=== PATIENT | male | born 1975 | race Caucasian/White ===

== ENCOUNTER 2018-12-08 14:26 | Observation (INO) ==
[2018-12-08 14:48] LABS: Bilirubin,Urine Negative (Negative); Blood,Urine Negative (Negative); Clarity,Urine Clear (Clear); Color,Urine Yellow (Yellow); Glucose,Urine (UA) >=1000 mg/dL (Normal); Ketones,Urine Negative (Negative); Leukocyte Esterase,Urine Negative (Negative); Nitrite,Urine Negative (Negative); PH,Urine 5.5 pH Units (5.0-8.0); Protein,Urine Trace mg/dL (Neg-Trace); Urobilinogen,Urine Normal (Normal)
[2018-12-08 15:05] LABS: Basophils % 0.2 %; Eosinophils % 0.1 %; Hematocrit 42.6 % (37.5-50.1); Hemoglobin 14.7 g/dL (12.9-16.9); Immature Granulocytes % 0.4 % (0-4); Lymphocytes % 6.4 %; Mean Corpuscular HGB Conc 34.5 g/dL (31.6-35.5); Mean Corpuscular Hemoglobin 28.4 pg (28.0-33.3); Mean Corpuscular Volume 82.4 fL (83.0-100.0); Mean Platelet Volume 10.3 fL (9.4-12.4); Monocytes # 0.9 K/mcL (0.0-1.3); Monocytes % 5.8 %; Neutrophils # 13.6 K/mcL (1.6-8.9); Platelet Count 345 K/mcL (140-400); Red Blood Count 5.17 M/mcL (4.19-5.50); Red Cell Distribution Width 13.2 % (11.5-14.5); Segmented Neutrophils % 87.1 %
[2018-12-08 15:11] LABS: Amphetamine Screen,Urine Negative ng/mL (Cutoff=1000); Barbiturate Screen,Urine Negative ng/mL (Cutoff=200); Benzodiazepines Screen,Urine Negative ng/mL (Cutoff=200); Cannabinoid Screen,Urine Negative ng/mL (Cutoff = 50); Cocaine Screen,Urine Negative ng/mL (Cutoff= 300); Opiate Screen,Urine Negative ng/mL (Cutoff=300); Phencyclidine Screen,Urine Negative ng/mL (Cutoff=25)
[2018-12-08 15:22] LABS: Acetaminophen < 10 mcg/mL (10-20); BUN/Creatinine Ratio 23 (6-26); Blood Urea Nitrogen 17 mg/dL (6-20); Calcium 9.8 mg/dL (8.6-10.3); Carbon Dioxide 25 mEq/L (23-29); Chloride 101 mEq/L (98-107); Ethanol < 10 mg/dL (Less than 10); Glucose 228 mg/dL (70-105); Osmolality,Calculated 291 (280-300); Potassium 3.4 mEq/L (3.5-5.1); Salicylate < 2.5 mg/dL (15.0-30.0); Sodium 136 mEq/L (136-145); eGFR For Non-African Americans > 60 (> 60)
--- NOTE | 2018-12-08 16:29 | Emergency Department Note ---
Disposition Clinical Impression: Suicidal ideations Type 1 diabetes Qualifiers: Diabetes mellitus complication status: without complication Qualified Code(s): E10.9 - Type 1 diabetes mellitus without complications Disposition: Still a Patient Condition: Good Referrals: Delmy Lee CNP [Primary Care Provider] - Forms: ED Satisfaction Letter Time of Disposition: 18:28 Psych HPI - General Chief Complaint: ED Psychiatric Symptoms Stated Complaint: SI Time Seen by Provider: 12/08/18 14:35 Source: patient, family Mode of arrival: ambulatory Limitations: no limitations Nursing Notes Reviewed: Yes Vital Signs Reviewed: Yes - History of Present Illness HPI Narrative: 43-year-old male presented to the emergency department for suicidal ideations. He did have an attempt where he said he took a lot of his insulin both long- acting and short-acting last night. found him very depressed and brought him in for further evaluation. He said he has had one attempt previously back in he was insistent grade no other times otherwise. Stays never been hos pitalized for this issue. He has no homicidal ideations is been no fevers, chills, nausea, vomiting. Otherwise patient has no other complaints. - Related Data Home Medications Medication Instructions Recorded Confirmed Insulin ASPART [NovoLOG] 0 unit SQ AD 04/18/15 06/23/16 FLUoxetine HCl [PROzac] 20 mg PO DAILY 06/23/16 06/23/16 Previous Rx's Medication Instructions Recorded Doxycycline 100 mg PO BID #14 capsule 06/23/16 Ibuprofen [Motrin] 800 mg PO Q8HR #30 tablet 06/23/16 Cephalexin [Keflex] 500 mg PO QID #28 capsule 02/04/18 Allergies Allergy/AdvReac Type Severity Reaction Status Date / Time Amoxicillin Allergy Rash Verified 02/04/18 08:34 All systems ED: reviewed and negative except as stated. Review of Systems: As Per HPI Past Medical History - Past Medical History Attestation: Yes The following information was validated with the patient. Source: patient Medical history: Reports: diabetes Psychiatric history: Reports: no psych history - Social History Smoking Status: Never smoker Smokeless Tobacco Status: Yes (1 CAN/DAY) Alcohol use: Reports: none Drug use: Reports: none Physical Exam - General Limitations: no limitations General appearance: alert, in no apparent distress - Head Head exam: atraumatic, normocephalic, normal inspection - Eye Eye exam: Present: normal appearance, PERRL, EOMI - ENT ENT exam: normal exam, normal oropharynx, mucous membranes moist - Neck Neck exam: Present: normal inspection, full ROM, trachea midline - Chest Chest inspection: Present: normal inspection, symmetric chest wall rise - Respiratory Respiratory exam: Present: normal lung sounds bilaterally. Absent: respiratory distress, wheezes, stridor, accessory muscle use, prolonged expiratory phase - Cardiovascular Cardiovascular exam: Present: regular rate, normal rhythm, normal heart sounds - Abdominal Exam Abdominal exam: Present: soft, Non-Tender, normal bowel sounds. Absent: tenderness, distention, guarding, rebound, rigidity - Extremities Exam Extremities exam: Present: normal inspection, full ROM. Absent: tenderness, pedal edema - Back Exam Back exam: Present: normal inspection, full ROM. Absent: tenderness, CVA tenderness (R), CVA tenderness (L) - Neurological Exam Neurological exam: Present: alert, oriented X3 - Skin Skin exam: Present: warm, dry, intact, normal color Course Vital Signs Temperature 97.9 F 12/08/18 14:27 Pulse Rate 130 12/08/18 14:27 Respiratory Rate 18 12/08/18 14:27 Blood Pressure 134/73 12/08/18 14:27 O2 Sat by Pulse Oximetry 98 12/08/18 14:27 Temperature 97.9 F 12/08/18 15:48 Pulse Rate 130 12/08/18 15:48 Respiratory Rate 18 12/08/18 15:48 Blood Pressure 134/73 12/08/18 15:48 O2 Sat by Pulse Oximetry 98 12/08/18 15:48 Oxygen Delivery Oxygen Delivery Room Air Psych - MDM Narrative Medical decision making narrative: Psych medical clearance was done patient is been medically cleared and psych will come up and evaluate the pelvic patient for further disposition and plan. Patient's blood sugar is stable he is medically clear from taken his insulin at this time. Patient evaluated by psychiatry who did recommend admission and forcing were unable to admit here so we will look for placement another facility. Patient's blood sugar was repeated it was down to 67 this is expected as the long-acting should be wearing off at this time. Did give patient fluid we will recheck it in an hour at that time as well as is still stable patient can be medically cleared as he does have history diabetes and that needs to control his blood sugar at this time. This part is a long-acting working towards the end of the day as he has not eaten all day as well. We will give patient a meal tray as well. Patient is still patient at the end of our shift so patient will be signed out to Dr. Cameron and Daniella. Please refer to their note for further plan and disposition. - Lab Data Result diagrams: 12/08/18 14:54 12/08/18 14:54 Lab Results 12/08/18 12/08/18 12/08/18 Range/Units 14:43 14:43 14:54 WBC 15.6 H (4.3-11.1) K/mcL RBC 5.17 (4.19-5.50) M/mcL Hgb 14.7 (12.9-16.9) g/dL Hct 42.6 (37.5-50.1) % MCV 82.4 L (83.0-100.0) fL MCH 28.4 (28.0-33.3) pg MCHC 34.5 (31.6-35.5) g/dL RDW 13.2 (11.5-14.5) % Plt Count 345 (140-400) K/mcL MPV 10.3 (9.4-12.4) fL Immature Gran % 0.4 (0-4) % Seg Neutrophils % 87.1 % Lymphocytes % 6.4 % Monocytes % 5.8 % Eosinophils % 0.1 % Basophils % 0.2 % Neutrophils # 13.6 H (1.6-8.9) K/mcL Lymphocytes # 1.0 (0.6-4.6) K/mcL Monocytes # 0.9 (0.0-1.3) K/mcL Eosinophils # 0.0 (0.0-0.6) K/mcL Basophils # 0.0 (0.0-0.2) K/mcL Sodium (136-145) mEq/L Potassium (3.5-5.1) mEq/L Chloride (98-107) mEq/L Carbon Dioxide (23-29) mEq/L BUN (6-20) mg/dL Creatinine (0.70-1.30) mg/dL Est GFR ( Amer) (> 60) Est GFR (Non-Af Amer) (> 60) BUN/Creatinine Ratio (6-26) Glucose (70-105) mg/dL Calculated Osmolality (280-300) Calcium (8.6-10.3) mg/dL Urine Color Yellow (Yellow) Urine Clarity Clear (Clear) Urine pH 5.5 (5.0-8.0) pH Units Ur Specific [place] 1.020 (1.010-1.025) Urine Protein Trace (Neg-Trace) mg/dL Urine Glucose (UA) >=1000 H (Normal) mg/dL Urine Ketones Negative (Negative) mg/dL Urine Blood Negative (Negative) Urine Nitrite Negative (Negative) Urine Bilirubin Negative (Negative) Urine Urobilinogen Normal (Normal) mg/dL Ur Leukocyte Esterase Negative (Negative) Salicylates (15.0-30.0) mg/dL Urine Opiates Screen Negative (Birzfx=945) ng/mL Acetaminophen (10-20) mcg/mL Ur Barbiturates Screen Negative (Ykxrmt=396) ng/mL Ur Phencyclidine Scrn Negative (Cutoff=25) ng/mL Ur Amphetamines Screen Negative (Cjvgvi=6785) ng/mL U Benzodiazepines Scrn Negative (Fthyxl=274) ng/mL Urine Cocaine Screen Negative (Cutoff= 300) ng/mL U Marijuana (THC) Screen Negative (Cutoff = 50) ng/mL Ur Drug Screen Interp See Below Ethyl Alcohol (Less than 10) mg/dL 12/08/18 Range/Units 14:54 WBC (4.3-11.1) K/mcL RBC (4.19-5.50) M/mcL Hgb (12.9-16.9) g/dL Hct (37.5-50.1) % MCV (83.0-100.0) fL MCH (28.0-33.3) pg MCHC (31.6-35.5) g/dL RDW (11.5-14.5) % Plt Count (140-400) K/mcL MPV (9.4-12.4) fL Immature Gran % (0-4) % Seg Neutrophils % % Lymphocytes % % Monocytes % % Eosinophils % % Basophils % % Neutrophils # (1.6-8.9) K/mcL Lymphocytes # (0.6-4.6) K/mcL Monocytes # (0.0-1.3) K/mcL Eosinophils # (0.0-0.6) K/mcL Basophils # (0.0-0.2) K/mcL Sodium 136 (136-145) mEq/L Potassium 3.4 L (3.5-5.1) mEq/L Chloride 101 (98-107) mEq/L Carbon Dioxide 25 (23-29) mEq/L BUN 17 (6-20) mg/dL Creatinine 0.74 (0.70-1.30) mg/dL Est GFR ( Amer) > 60 (> 60) Est GFR (Non-Af Amer) > 60 (> 60) BUN/Creatinine Ratio 23 (6-26) Glucose 228 H (70-105) mg/dL Calculated Osmolality 291 (280-300) Calcium 9.8 (8.6-10.3) mg/dL Urine Color (Yellow) Urine Clarity (Clear) Urine pH (5.0-8.0) pH Units Ur Specific [place] (1.010-1.025) Urine Protein (Neg-Trace) mg/dL Urine Glucose (UA) (Normal) mg/dL Urine Ketones (Negative) mg/dL Urine Blood (Negative) Urine Nitrite (Negative) Urine Bilirubin (Negative) Urine Urobilinogen (Normal) mg/dL Ur Leukocyte Esterase (Negative) Salicylates < 2.5 L (15.0-30.0) mg/dL Urine Opiates Screen (Nekaew=373) ng/mL Acetaminophen < 10 L (10-20) mcg/mL Ur Barbiturates Screen (Jdhgxc=164) ng/mL Ur Phencyclidine Scrn (Cutoff=25) ng/mL Ur Amphetamines Screen (Elieko=8738) ng/mL U Benzodiazepines Scrn (Jwoekf=043) ng/mL Urine Cocaine Screen (Cutoff= 300) ng/mL U Marijuana (THC) Screen (Cutoff = 50) ng/mL Ur Drug Screen Interp Ethyl Alcohol < 10 (Less than 10) mg/dL Psychiatric Medical Clearance - Medical Clearance Checklist Medical History: No Social History Section defined Current Vitals: Last Vital Signs Temp 97.9 F 12/08/18 15:48 Pulse 130 12/08/18 15:48 Resp 18 12/08/18 15:48 BP 134/73 12/08/18 15:48 Pulse Ox 98 12/08/18 15:48 Psychiatric Lab Panel: Drug Levels and Toxicity 12/08/18 12/08/18 14:43 14:54 Urine Opiates Screen Negative Acetaminophen < 10 L Ur Barbiturates Screen Negative Ur Phencyclidine Scrn Negative Ur Amphetamines Screen Negative U Benzodiazepines Scrn Negative Urine Cocaine Screen Negative U Marijuana (THC) Screen Negative Ethyl Alcohol < 10 Abnormal Labs: Abnormal lab results WBC 15.6 K/mcL (4.3-11.1) H 12/08/18 14:54 MCV 82.4 fL (83.0-100.0) L 12/08/18 14:54 13.6 K/mcL (1.6-8.9) H 12/08/18 14:54 Potassium 3.4 mEq/L (3.5-5.1) L 12/08/18 14:54 Glucose 228 mg/dL (70-105) H 12/08/18 14:54 >=1000 mg/dL (Normal) H 12/08/18 14:43 Salicylates < 2.5 mg/dL (15.0-30.0) L 12/08/18 14:54 Acetaminophen < 10 mcg/mL (10-20) L 12/08/18 14:54 Statement of Medical Clearance: I have evaluated the patient, reviewed diagnostic information, and certify that the patient's medical condition is sufficiently stable that transfer to the psychiatric unit does not pose a significant risk of deterioration. Attestation Statement - Attestation Attestation: Patient was seen with resident physician. I reviewed the history, physical, assessment and plan, and agree with the findings. I also personally evaluated this patient and had [id number] time with this patient. 43-year-old male presents to the emergency department with chief complaint of suicidal ideation. Patient says that about one or 2 in the morning he decided to kill himself and he did so by taking 3 or so vials of insulin. He is a type I diabetic and takes short and long-term acting insulin. This was brought to the attention family member around 11 AM and eventually presented into the emergency department for evaluation and treatment. Symptomatically patient really does not have any symptoms other than very depressed and wanting to hurt himself. Review systems as above remainder negative. Physical exam vital signs are stable. ENT is unremarkable. Heart regular rhythm and rate. Lungs clear. Abdomen soft nontender. Extremities unre markable. Neurologically intact. Skin superficial laceration that appears to be healing in the right forearm. No other lacks were seen. Patient said this was an accidental lack. Psych depressed flat affect. ED course. With the time out from his insulin administration a normal glucose essentially rules out an issue. His glucose is actually high at 226. Other lab tests are unremarkable. We will have one A come and evaluate the patient. They will help facilitate disposition. Patient's repeat glucose was in the 60s which is still in the normal range. He will be given a meal tray he has not really eaten today. This be rechecked by the rn shift mgr team and about an hour. We did discuss if his glucose comes up and is within the normal range she should be medically cleared for psychiatric treatment. If he continues to drop and probably needs additional medical management. This was communicated to the rn shift mgr team. Hemodynamically the patient was stable. Neurologically he had no signs of hypoglycemia or other neurologic deficits. He still was depressed. I agree with the resident physician assessment and plan.
[2018-12-08] MEDS ORDERED: Naloxone 0.4 MG/ML INJ IVP PRN ×2 (22:12→22:30)
[2018-12-09] MEDS ORDERED: D5% in 0.45% NACL 1,000 ML IVC SCH ×2 (00:45→04:20)
--- NOTE | 2018-12-09 00:46 | Internal Med History&Physical ---
Date of Encounter: 12/09/18 Time of Encounter: 00:40 Internal Medicine - H&P: HPI Chief complaint: Suicide attempt History of present illness: Mr. Adams is a 43 year old male with a past medical history of type 1 diabetes who presented to the ED after his found him somnolent and unresponsive. Patient apparently had taken 600 units of his short acting and 600 units of his long-acting insulin in an attempt to end his life. We were asked to observe the patient for the next 24 hours due to concern for hypoglycemia. Blood sugars on arrival were in the 60s to 70s. Patient has a history of previous attempt in the past. Currently denies any suicidal ideation. Patient states that the fact that he was unsuccessful and ending his life given the amount of insulin he took was assigned that it was not his time. Patient otherwise denies any fever, chills, chest pain, shortness of breath, nausea, vomiting or diarrhea. Had been on Prozac for approximately 2 years and discontinued taking it 3 weeks ago stating that he felt it was not doing anything. Patient concerned that he may have bipolar disorder. He states he has never been formally evaluated by a psychiatrist. Patient is and has 2 kids. Labs aside from a mild leukocytosis of 15 were unremarkable. We will admit patient for observation with one-to-one sitter and psychiatric consult. Past Med Surg Social Fam HX - Past Medical History Medical history: diabetes Psychiatric history: depression, prior suicide attempt - Past Surgical History Additional surgical history: R KNEE MENISCUS. - Social History Smoking Status: Never smoker Smokeless Tobacco Status: Yes (1 CAN/DAY) Alcohol use: none, rarely Drug use: none - Additional Family History Additional family history: Noncontributory Internal Medicine - H&P: Meds Insulin ASPART [NovoLOG] 0 unit SQ AD 04/18/15 [History] FLUoxetine HCl [PROzac] 20 mg PO DAILY 06/23/16 [History] Insulin LISPRO [Humalog] 12 units SQ 12/08/18 [History] Allergy/AdvReac Type Severity Reaction Status Date / Time Amoxicillin Allergy Rash Verified 02/04/18 08:34 All Systems PM: A 10-system review of systems was performed and is negative for pertinent findings except as documented above in the HPI. - Constitutional Constitutional: no chills, no fever(s), no night sweats - EENT Eyes: no change in vision, no discharge, no pain, no photophobia Ears: no ear discharge, no ear pain, no tinnitus Nose, mouth and throat: no dysphagia, no nasal discharge, no neck pain, no sore throat - Cardiovascular Cardiovascular ROS IM: no chest pain, no diaphoresis, no dyspnea, no lightheadedness, no palpitations, no syncope - Respiratory Respiratory: no cough, no dyspnea, no wheezing, no excessive phlegm production - Gastrointestinal Gastrointestinal: no abdominal pain, no diarrhea, no hematemesis, no hematochezia, no melena, no nausea, no vomiting - Musculoskeletal Musculoskeletal ROS IM: no numbness, no tingling - Integumentary Integumentary IM: no rash, no unusual bruising - Neurological Neurological ROS: no confusion, no convulsions, no focal weakness, no numbness, no tingling, no tremor(s) - Hematologic/Lymphatic Hematologic/Lymphatic: no easy bruising - Constitutional Vitals: Temp Pulse Resp BP Pulse Ox 99.3 F 94 15 119/78 99 12/08/18 23:03 12/08/18 23:03 12/08/18 23:03 12/08/18 23:03 12/08/18 23:03 Exam: General: Alert and oriented 3 lying in bed in no acute distress Skin:Normal color, no rash, no lesions. HEENT:EOM, pupils equal, round and reactive. Cardiovascular:Normal S1 & S2, no rubs, murmurs or gallops. No JVD. Pulse regular. Lungs:Normal breath sounds, no wheezes or crackles. Abdomen:Soft, non-tender, no rigidity. Extremities:No deformity, no edema or tenderness, no joint swelling or clubbing. Neurological:Normal cognition and motor skills. Pulses:Carotid and radial pulses normal +2. Rest of the physical exam is non contributory Internal Med - H&P Results - Labs CBC & Chem 7: 12/08/18 14:54 12/08/18 14:54 Labs: Short CBC 12/08/18 Range/Units 14:54 WBC 15.6 H (4.3-11.1) K/mcL Hgb 14.7 (12.9-16.9) g/dL Hct 42.6 (37.5-50.1) % Plt Count 345 (140-400) K/mcL Neutrophils # 13.6 H (1.6-8.9) K/mcL BMP 12/08/18 14:54 Sodium 136 Potassium 3.4 L Chloride 101 Carbon Dioxide 25 BUN 17 Creatinine 0.74 Glucose 228 H Calcium 9.8 Urine 12/08/18 Range/Units 14:43 Urine Color Yellow (Yellow) Urine Clarity Clear (Clear) Urine pH 5.5 (5.0-8.0) pH Units Ur Specific [place] 1.020 (1.010-1.025) Urine Protein Trace (Neg-Trace) mg/dL Urine Glucose (UA) >=1000 H (Normal) mg/dL - Assessment and Plan (1) Hypoglycemia Current Visit: Yes Status: Acute Assessment and plan: Patient presenting with suicide attempt after injecting himself with 600 units of his long-acting and 600 units of a short acting insulin. Lowest blood glucose level was in the 60s to 70s. -We will continue with blood glucose checks every 30 minutes for the next hour and increased frequency if stable. -We will start patient on D5 half-normal saline. (2) Suicidal ideations Current Visit: Yes Status: Acute Assessment and plan: Suicidal ideation with suicidal attempt. Patient evaluated by psychiatry in the ED. We will continue one-to-one sitter. Consult to psychiatry (3) Type 1 diabetes Current Visit: Yes Status: Acute Assessment and plan: We will start patient on sliding scale insulin after blood glucose stabilized. Qualifiers: Diabetes mellitus complication status: with unspecified complications Qualified Code(s): E10.8 - Type 1 diabetes mellitus with unspecified complications (4) DVT prophylaxis Current Visit: Yes Status: Acute Assessment and plan: Subcutaneous heparin - Time Spent With Patient Total time spent is greater than 50% in coordination of care (as documented) at patient's floor/unit and/or counseling patient:
[2018-12-09] MEDS: D5% in 0.45% NACL 1,000 ML IVC SCH ×4 (04:57→23:38)
[2018-12-09] MEDS: *HR* Heparin 5,000 UNIT/ML VIAL SQ SCH ×3 (04:57→21:45)
--- NOTE | 2018-12-09 09:45 | Internal Med Progress Note ---
Hospitalist Progress Note - Encounter Date of Encounter: 12/09/18 Time of Encounter: 09:30 - Subjective Interval History: No acute events overnight. Blood sugar has been stable - Exam Vitals: Temp Pulse Resp BP Pulse Ox 98.3 F 81 18 108/65 99 12/09/18 03:13 12/09/18 03:13 12/09/18 03:13 12/09/18 03:13 12/09/18 03:13 Exam: General: Alert and oriented 3 lying in bed in no acute distress Skin:Normal color, no rash, no lesions. HEENT:EOM, pupils equal, round and reactive. Cardiovascular:Normal S1 & S2, no rubs, murmurs or gallops. No JVD. Pulse regular. Lungs:Normal breath sounds, no wheezes or crackles. Abdomen:Soft, non-tender, no rigidity. Extremities:No deformity, no edema or tenderness, no joint swelling or clubbing. Neurological:Normal cognition and motor skills. Pulses:Carotid and radial pulses normal +2. Rest of the physical exam is non contributory - Assessment and Plan (1) Suicidal ideations Current Visit: Yes Status: Acute Assessment and Plan: Suicidal ideation with suicidal attempt with insulin overdose about 24hrs ago Continue D5. Blood sugars have been stable. resume insulin and diabetic diet Plan to transfer to inpatient psych in am (2) Type 1 diabetes Current Visit: Yes Status: Acute Assessment and Plan: Resume diabetic diet and short and long acting insulin (3) Hypoglycemia Current Visit: Yes Status: Acute Assessment and Plan: Patient presenting with suicide attempt after injecting himself with 600 units of his long-acting and 600 units of a short acting insulin. Lowest blood glucose level was in the 60s to 70s. continue blood sugar checks and D5. Sugars have been stable (4) DVT prophylaxis Current Visit: Yes Status: Acute Assessment and Plan: Subcutaneous heparin - Time Spent with Patient Total time spent is greater than 50% in coordination of care (as documented) at patient's floor/unit and/or counseling patient: Internal Medicine: Result - Labs CBC & Chem 7: 12/08/18 14:54 12/09/18 08:57 Labs: Short CBC 12/08/18 Range/Units 14:54 WBC 15.6 H (4.3-11.1) K/mcL Hgb 14.7 (12.9-16.9) g/dL Hct 42.6 (37.5-50.1) % Plt Count 345 (140-400) K/mcL Neutrophils # 13.6 H (1.6-8.9) K/mcL BMP 12/08/18 14:54 Sodium 136 Potassium 3.4 L Chloride 101 Carbon Dioxide 25 BUN 17 Creatinine 0.74 Glucose 228 H Calcium 9.8 Urine 12/08/18 Range/Units 14:43 Urine Color Yellow (Yellow) Urine Clarity Clear (Clear) Urine pH 5.5 (5.0-8.0) pH Units Ur Specific [place] 1.020 (1.010-1.025) Urine Protein Trace (Neg-Trace) mg/dL Urine Glucose (UA) >=1000 H (Normal) mg/dL Consult Discharge Plan - Plan Referrals: Delmy Lee, EMERGENCY RESPONSE COORDINATOR [Primary Care Provider] - (2) Type 1 diabetes Qualifiers: Diabetes mellitus complication status: with unspecified complications Qualified Code(s): E10.8 - Type 1 diabetes mellitus with unspecified complications
[2018-12-09 09:54] LABS: BUN/Creatinine Ratio 20 (6-26); Blood Urea Nitrogen 14 mg/dL (6-20); Calcium 8.9 mg/dL (8.6-10.3); Carbon Dioxide 28 mEq/L (23-29); Chloride 102 mEq/L (98-107); Glucose 149 mg/dL (70-105); Osmolality,Calculated 289 (280-300); Sodium 138 mEq/L (136-145); eGFR For Non-African Americans > 60 (> 60)
[2018-12-09 09:59] LABS: Estimated Average Glucose 344 mg/dl; Hemoglobin A1C 13.6 %
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
[2018-12-09] MEDS ORDERED: Dextrose Gel 15 GM/37.5 ML TUBE PO PRN ×2 (10:06)
[2018-12-09] MEDS ORDERED: D5% in Water 1,000 ML IVC PRN (10:06)
[2018-12-09] MEDS ORDERED: *HR* Dextrose 50 % in Water (Syg) 50 ML SYRINGE IVP PRN (10:06)
[2018-12-09] MEDS ORDERED: Ibuprofen 600 MG TABLET PO PRN (10:30)
[2018-12-09] MEDS: Insulin LISPRO 300 UNITS/3 ML VIAL SQ SCH ×2 (12:10→17:25)
[2018-12-09] MEDS: Insulin DETEMIR 100 UNIT/ML X5UNITS SQ SCH (21:46)
[2018-12-10] MEDS: *HR* Heparin 5,000 UNIT/ML VIAL SQ SCH ×3 (05:14→21:35)
[2018-12-10] MEDS: D5% in 0.45% NACL 1,000 ML IVC SCH ×2 (05:55→21:56)
[2018-12-10 06:22] LABS: BUN/Creatinine Ratio 15 (6-26); Blood Urea Nitrogen 11 mg/dL (6-20); Calcium 8.6 mg/dL (8.6-10.3); Carbon Dioxide 27 mEq/L (23-29); Chloride 106 mEq/L (98-107); Glucose 125 mg/dL (70-105); Osmolality,Calculated 291 (280-300); Potassium 3.6 mEq/L (3.5-5.1); Sodium 140 mEq/L (136-145); eGFR For Non-African Americans > 60 (> 60)
--- NOTE | 2018-12-10 08:10 | Discharge Summary ---
Date of Encounter: 12/10/18 Time of Encounter: 08:00 - Discharge Diagnosis (1) Suicidal ideations Priority: Primary Status: Acute Assessment and Plan: 43 year old male with a past medical history of type 1 diabetes who presented to the ED after his found him somnolent and unresponsive. Patient apparently had taken 600 units of his short acting and 600 units of his long- acting insulin in an attempt to end his life. We were asked to observe the patient for the next 24 hours due to concern for hypoglycemia. Blood sugars on arrival were in the 60s to 70s. Patient has a history of previous attempt in the past. Currently denies any suicidal ideation. Patient states that the fact that he was unsuccessful and ending his life given the amount of insulin he took was assigned that it was not his time. Patient was assessed with Suicidal ideation with suicidal attempt with insulin overdose on 12/08. he has been on D5 for about 48hrs and his sugars have been stable. D5 has been discontinued this am. He has also been tolerating a diet. Will resume insulin and monitor fingersticks. Patient is clear for discharge to inpatient psych. (2) Type 1 diabetes Priority: Primary Status: Acute Qualifiers: Diabetes mellitus complication status: with unspecified complications Qualified Code(s): E10.8 - Type 1 diabetes mellitus with unspecified complications (3) Hypoglycemia Priority: Primary Status: Acute (4) DVT prophylaxis Priority: Primary Status: Acute Hospital course: Mr. Adams is a 43 year old male - Time Spent with Patient Total time spent providing and/or coordinating discharge services: - Discharge Medications Prescriptions: No Action Insulin LISPRO [Humalog] 12 units SQ Insulin ASPART [NovoLOG] 0 unit SQ AD FLUoxetine HCl [PROzac] 20 mg PO DAILY Home Medications: Insulin ASPART [NovoLOG] 0 unit SQ AD 04/18/15 [History] FLUoxetine HCl [PROzac] 20 mg PO DAILY 06/23/16 [History] Insulin LISPRO [Humalog] 12 units SQ 12/08/18 [History] Allergies/Adverse Reactions: Allergy/AdvReac Type Severity Reaction Status Date / Time Amoxicillin Allergy Rash Verified 02/04/18 08:34 Date of admission: 12/08/18 22:06 Primary care physician: Delmy Lee CNP Consults: 12/09/18 00:49 Consult to Psychiatry [CONS] Routine Consulting Provider: [facility] Reason consult: Sitter/1:1 Other Other reason and/or additional details: Suicidal ideation with attempt - Constitutional Vitals: Temp Pulse Resp BP Pulse Ox 97.9 F 82 16 120/78 98 12/10/18 07:00 12/10/18 07:00 12/10/18 07:00 12/10/18 07:00 12/10/18 07:00 Exam: General: Alert and oriented 3 lying in bed in no acute distress Skin:Normal color, no rash, no lesions. HEENT:EOM, pupils equal, round and reactive. Cardiovascular:Normal S1 & S2, no rubs, murmurs or gallops. No JVD. Pulse regular. Lungs:Normal breath sounds, no wheezes or crackles. Abdomen:Soft, non-tender, no rigidity. Extremities:No deformity, no edema or tenderness, no joint swelling or clubbing. Neurological:Normal cognition and motor skills. Pulses:Carotid and radial pulses normal +2. Rest of the physical exam is non contributory - Patient Status Disposition: Transfer Psychiatric Hosp Condition: Good - Discharge Instructions Follow Up With: Delmy Lee CNP [Primary Care Provider] -
[2018-12-10] MEDS: Insulin LISPRO 300 UNITS/3 ML VIAL SQ SCH ×3 (08:50→17:41)
[2018-12-10 13:17] LABS: Basophils # 0.1 K/mcL (0.0-0.2); Basophils % 0.9 %; Eosinophils # 0.3 K/mcL (0.0-0.6); Hematocrit 38.9 % (37.5-50.1); Immature Granulocytes % 0.3 % (0-4); Lymphocytes # 1.6 K/mcL (0.6-4.6); Lymphocytes % 27.9 %; Mean Corpuscular HGB Conc 33.4 g/dL (31.6-35.5); Mean Corpuscular Hemoglobin 28.4 pg (28.0-33.3); Mean Corpuscular Volume 84.9 fL (83.0-100.0); Mean Platelet Volume 10.4 fL (9.4-12.4); Monocytes # 0.4 K/mcL (0.0-1.3); Monocytes % 6.6 %; Neutrophils # 3.4 K/mcL (1.6-8.9); Platelet Count 250 K/mcL (140-400); Red Blood Count 4.58 M/mcL (4.19-5.50); Red Cell Distribution Width 13.3 % (11.5-14.5); Segmented Neutrophils % 59.3 %
[2018-12-10] MEDS: Insulin DETEMIR 100 UNIT/ML X5UNITS SQ SCH (21:35)
[2018-12-11] MEDS: *HR* Heparin 5,000 UNIT/ML VIAL SQ SCH (04:57)
[2018-12-11] MEDS: D5% in 0.45% NACL 1,000 ML IVC SCH (08:15)
[2018-12-11] MEDS: Insulin LISPRO 300 UNITS/3 ML VIAL SQ SCH (08:16)
[2018-12-11 11:27] VITALS: BP 132/87
--- NOTE | 2018-12-11 12:38 | Event Note ---
Date of Encounter: 12/11/18 Time of Encounter: 12:34 I have seen and evaluated the patient at bedside. patient alert and oriented in no distress. denies visual or auditory hallucination. patient had an episode of hypoglycemia overnight. blood sugar has been stable on his oral diet. Physical exam: Vitals: reviewed General: Alert and oriented x4. in no distress Skin: Normal color, no rash, no lesions. HEENT: EOM, pupils equal, round and reactive. Cardiovascular: RRR, normal S1 & S2, no rubs, murmurs or gallops. Lungs: CTA b/l, no wheezes or crackles. Abdomen: Soft, non-tender, no rigidity. Extremities: No deformity, no edema or tenderness, no joint swelling or clubbing. Neurological: Normal cognition and motor skills. Rest of the physical exam is non contributory Assessment: 1. Suicide attempt 2. Suicidal ideation 3. Alcohol abuse 4. T1DM 5. VTE prophylaxis Plan patient is clinically stable to be discharged to . DC summary dictated yesterday.
== END 2018-12-11 14:25 | disposition home or self-care (01) ==
LOC: EMEROOARM 14:26 → 3ANU 14:26
PROVIDERS: ADMIT Internal Medicine; ATTEND Internal Medicine

== ENCOUNTER 2018-12-11 14:25 | Inpatient (IN) ==
[2018-12-11] MEDS ORDERED: traZODone 50 MG TABLET PO PRN (15:00)
[2018-12-11] MEDS ORDERED: MOM Conc 10 ML UD.LIQ PO PRN (15:00)
[2018-12-11] MEDS ORDERED: *HR* LORazepam 1 MG TABLET PO PRN (15:00)
[2018-12-11] MEDS ORDERED: Ibuprofen 400 MG TABLET PO PRN (15:00)
[2018-12-11] MEDS ORDERED: Mag Hydrox/Al Hydrox/Simeth 30 ML UDC PO PRN (15:00)
[2018-12-11] MEDS ORDERED: hydrOXYzine pamoate 25 MG CAPSULE PO PRN (15:00)
[2018-12-11] MEDS ORDERED: *HR* LORazepam 2 MG/ML VIAL IM PRN (15:00)
[2018-12-11] MEDS ORDERED: Haloperidol Lactate 5 MG/ML VIAL IM PRN (15:00)
[2018-12-11] MEDS ORDERED: Dextrose Gel 15 GM/37.5 ML TUBE PO PRN ×2 (15:02)
[2018-12-11] MEDS: Insulin LISPRO 300 UNITS/3 ML VIAL SQ SCH (17:36)
[2018-12-11] MEDS: Nicotine 2 MG GUM BC PRN (17:48)
[2018-12-12] MEDS: Insulin LISPRO 300 UNITS/3 ML VIAL SQ SCH ×3 (09:34→16:46)
[2018-12-12] MEDS: Nicotine 2 MG GUM BC PRN (10:42)
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
--- NOTE | 2018-12-12 13:04 | Internal Medicine Consult Note ---
Date of Encounter: 12/12/18 Time of Encounter: 13:00 - Assessment and Plan (1) Type 1 diabetes Current Visit: No Status: Acute Assessment and plan: patient with nocturnal episodes of hypoglycemia. Blood sugar running 150-300 during the day time. Plan consider starting the patient on levemir 5 units am, no long acting insulin at bedtime. continue lispro low dose sliding scale ac. refrain from using short acting insulin HS. encourage appropriate oral intake before bedtime. patient could have a snack before going to be going to bed. foods high in fat should be avoided because they delay glucose absorption. Qualifiers: Diabetes mellitus complication status: with unspecified complications Qualified Code(s): E10.8 - Type 1 diabetes mellitus with unspecified compl ications (2) DVT prophylaxis Current Visit: No Status: Acute Assessment and plan: per psychiatry team recommendations (3) Depression Current Visit: No Status: Chronic Assessment and plan: managed per psychiatry Qualifiers: Major depression recurrence: recurrent Active/Remission status: currently active Major depression episode severity: severe Psychotic features: without psychotic features Qualified Code(s): F33.2 - Major depressive disorder, recurrent severe without psychotic features (4) Suicidal ideations Current Visit: No Status: Acute Assessment and plan: as above - Time Spent With Patient Total time spent is greater than 50% in coordination of care (as documented) at patient's floor/unit and/or counseling patient: Greater than 35 minutes (40) Internal Medicine - CN: HPI - Data of Consult Patient: new to practice Consult date: 12/12/18 Requesting Physician: Yevgeniy Nieves DO - Consult Narrative Reason for consult: labile blood sugar History of present illness: Mr. Adams is a 43 year old male with a past medical history of type 1 diabetes who presented to the ED after his found him somnolent and unresponsive. Patient apparently had taken 600 units of his short acting and 600 units of his long-acting insulin in an attempt to end his life. Hospitalist team has been re- consulted due to one episode of hypoglycemia overnight. As per the patient he got up to use the restroom this morning at around 5:30am and was very diaphoretic, His blood sugar was checked and it was 43. He denied mental cloudiness, dizziness or light headedness at that time. Blood sugar at bet time in the 60s, per 1A nurse. Patient did not received any long acting insulin. Past Med Surg Social Fam HX - Past Medical History Medical history: diabetes Psychiatric history: depression, prior suicide attempt - Past Surgical History Additional surgical history: R KNEE MENISCUS. - Social History Smoking Status: Never smoker Smokeless Tobacco Status: Yes Alcohol use: heavy (Hx AA, sober for 7 years prior to recent relapse), recent Drug use: none, other - Family History Father Adopted: [place]: Drake Adams Age: 59 Living Status: Still Living Hx Family Cardiac Disorders: No Hx Family Respiratory Disorders: No Hx Family Cancer: No Hx Family GI Disorders: No Hx Family Genitourinary Disorders: No Hx Family Endocrine Disorder: No Hx Family Musculoskeletal Disorders: No Hx Family Neuromuscular Disorders: Yes (MS) Hx Family Neurologic Disorders: No Hx Family HEENT Disorders: No Hx Family Autoimmune Disorders: No Hx Family Reproductive Disorders: No Hx Family Psychosocial Disorders: No Hx Family Medical Disorders: No - Constitutional Constitutional: no chills, no fever(s), no weakness - Cardiovascular Cardiovascular ROS IM: no chest pain, no dyspnea, no dyspnea on exertion, no lightheadedness, no orthopnea - Respiratory Respiratory: no cough, no dyspnea on exertion, no wheezing - Gastrointestinal Gastrointestinal: no abdominal pain, no nausea, no vomiting - Musculoskeletal Musculoskeletal ROS IM: no numbness, no tingling - Integumentary Integumentary IM: no erythema - Neurological Neurological ROS: no focal weakness, no headache(s), no weakness - Endocrine Endocrine IM: no cold intolerance, no excessive sweating, no polydipsia, no polyphagia, no polyuria - Hematologic/Lymphatic Hematologic/Lymphatic: no lymphadenopathy Internal Medicine - CN: Meds FLUoxetine HCl [Fluoxetine HCl] 40 mg PO DAILY 12/10/18 [History] Insulin Glargine,Hum.rec.anlog [Toujeo Solostar] 24 units SQ DAILY 12/10/18 [History] Insulin LISPRO [Humalog Kwikpen U-200] 0 - 16 units SQ TID MDD SLIDING SCALE 12/10/18 [History] Melatonin 5 mg PO HS 12/10/18 [History] Allergy/AdvReac Type Severity Reaction Status Date / Time Amoxicillin Allergy Rash Verified 02/04/18 08:34 Hospitalist - CN: Exam - Constitutional Vitals: Temp Pulse Resp BP Pulse Ox 98.4 F 93 20 129/85 99 12/12/18 11:02 12/12/18 11:02 12/12/18 11:02 12/12/18 11:02 12/12/18 11:02 Exam: General: Alert and oriented 3. in no distress Skin: Normal color, no rash, no lesions. HEENT: EOM, pupils equal, round and reactive. Cardiovascular: RRR, normal S1 & S2, no rubs, murmurs or gallops. Lungs: CTA b/l, no wheezes or crackles. Abdomen: Soft, non-tender, no rigidity. Extremities: No edema Neurological: No focal neurological deficit. Rest of the physical exam is non contributory Consult Discharge Plan - Plan Referrals: NONE,PCP [Primary Care Provider] -
[2018-12-12] MEDS: BuPROPion SR (12 HR) 150 MG TABLET PO SCH (13:19)
[2018-12-13] MEDS: Insulin LISPRO 300 UNITS/3 ML VIAL SQ SCH ×2 (08:26→11:34)
[2018-12-13] MEDS: BuPROPion SR (12 HR) 150 MG TABLET PO SCH (09:15)
--- NOTE | 2018-12-13 12:19 | Discharge Summary ---
Date of Encounter: 12/13/18 Time of Encounter: 12:15 Diagnosis - Discharge Diagnosis (1) Depression Status: Acute Qualifiers: Major depression recurrence: recurrent Active/Remission status: currently active Major depression episode severity: severe Psychotic features: without psychotic features Code(s): F32.9 - Major depressive disorder, single episode, unspecified Medications - Discharge Medications Prescriptions: BuPROPion SR (12 HR) [Wellbutrin SR] 150 mg PO DAILY 30 Days #30 tablet.er Insulin Glargine,Hum.rec.anlog [Toujeo Solostar] 24 units SQ DAILY 12/10/18 [History] Insulin LISPRO [Humalog Kwikpen U-200] 0 - 16 units SQ TID MDD SLIDING SCALE 12/10/18 [History] Melatonin 5 mg PO HS 12/10/18 [History] BuPROPion SR (12 HR) [Wellbutrin SR] 150 mg PO DAILY 30 Days #30 tablet.er 12/13/18 [Rx] Allergy/AdvReac Type Severity Reaction Status Date / Time Amoxicillin Allergy Rash Verified 02/04/18 08:34 Provider Date of admission: 12/11/18 14:25 Primary care physician: PCP NONE Psychiatry Exam - Constitutional Vitals: Temp Pulse Resp BP Pulse Ox 98.2 F 92 20 149/81 99 12/12/18 20:34 12/12/18 20:34 12/12/18 20:34 12/12/18 20:34 12/12/18 20:34 General appearance: age & developmentally appropriate, well-groomed, well- nourished - Musculoskeletal Gait: normal Station: relaxed Strength & Tone: normal for patient - Psychiatric Patient Orientation: Yes Person, Yes Time, Yes Place, Yes Circumstance Level of alertness: Alert Behavior: calm, cooperative Psychomotor activity: Normal Eye Contact: Maintains Eye Contact Mood Description: Euthymic/stable Affect description: congruent with mood Speech Volume: Normal Speech pattern: normal rate, normal rhythm, normal tone, fluent Language & Vocabulary: consistent with education Thought Process: Intact, Logical, Linear, Goal Oriented Thought Content: Yes Intact Attention Span Ability: Capable of Focused Attention Memory Description: Grossly Intact Patient Reliability: Reliable Historian Fund of knowledge: Yes abstraction ability Intelligence Estimate: Average Judgment: Good Insight: Full Hospital Course Hospital course: Mr. Adams is a 43 year old male who was admitted to 1A psychiatric unit after being medically cleared following a suicide attempt using an insulin. Patient talked extensively about his history of depression and not feeling his antidepressant was effective, having stopped it 3 weeks ago. Since then, he relapsed on alcohol and has become more depressed. He was feeling hopeless, helpless, having low energy and not seeing any productive future. One night as he was drunk, he decided he was going to kill himself and tried to overdose on his insulin. His found out and brought him into the hospital. He was placed on the medical floor, evaluated, monitored and cleared. He was then transferred for mental health treatment. Patient states that he knows he cannot drink alcohol and had been sober for over 7 years. He attends and has a sponsor. He discussed treatment options with antidepressants that had decreased male sexual side effects. He was started on Wellbutrin with good results while on the unit. He slept well on the unit. He had no adverse side effects. He d enied being suicidal or homicidal. I had a telephone conference/family meeting with him and his last evening with a nurse present. His understands the situation and feels safe for herself, her family and for him coming home. He states that he would not attempt to kill himself as he is feeling better than he had been and sleeping better than he has in years. "I am 99.9% sure that if I was not drinking, I never would have done anything to hurt myself." He knows that alcohol makes his depression worse and decreases his impulses. He states he will stay on the Wellbutrin. He is going to get outpatient counseling and potentially go to couples therapy to have better communication with his . His mood is stable, his thoughts are stable, and the patient is ready for discharge and will keep follow-up appointments. Time spent discussing smoking cessation with patient: 3 to 10 minutes Does patient wish to continue nicotine replacement upon disc: No - Time Spent with Patient Total time spent providing and/or coordinating discharge services: 20 min Less than 30 minutes Assessment and Plan - Patient/Caregiver Discharge Instructions Activity: resume usual activities as tolerated Diet: regular diet - Follow up Plan Follow up with: [facility] [Outside] - 01/10/19 10:00 am (You have an appointment scheduled on Thursday, January 10, 2019 at 10:[address] Kang Pepe, PhD for Counseling. You have an appointment scheduled for Tuesday, February 19, 2019 at 1:00 PM with Jr Galicia APRN [facility] for medication management. Please contact the office at least 24 hours in advance if you are unable to keep your appointment(s).) Siria Lino CNP [Advanced Practice Nurse] - 01/14/19 8:30 am (You have an appointment scheduled with your provider Siria Lino on Monday, January 14, 2019 at 8:30 AM Please contact the office at the number above at least 24 hours in advance if you are unable to keep this appointment. ) Veronika Turner CNP [Advanced Practice Nurse] - 12/24/18 7:30 am (You have an appointment scheduled with your provider Veronika Turner on Monday, December 24, 2018 at 7:30 AM. Please contact the office at the number above at least 24 hours in advance if you are unable to keep this appointment. ) Delmy Lee CNP [Advanced Practice Nurse] - 12/18/18 12:00 pm (You have an appointment scheduled with your primary care provider RISSA Manning on Tuesday, December 18, 2018 at 12:00 PM. Please bring a list of all medications you are currently taking and inform her that you have been referred to a psychiatrist. Please contact the office at the number above at least 24 hours in advance if you are unable to keep this appointment. ) Functional capacity at discharge: independent ambulation Overall status at discharge: Stable Disposition: Home, Self-Care Quality - Multiple Antipsychotics Patient discharged on 2 or more antipsychotic medications: No Procedures - Procedures Procedures: Medication Management, Crisis Stabilization, Supportive Therapy, Psychoeducational Therapy
[2018-12-13 12:51] VITALS: BP 120/77
== END 2018-12-13 13:20 | disposition home or self-care (01) | DRG 885 ==
LOC: 1ANU 14:25
PROVIDERS: ADMIT Psychiatry & Neurology Psychiatry; ATTEND Psychiatry & Neurology Psychiatry